=== PATIENT | male | born 1985 | race Caucasian/White ===

== ENCOUNTER 2022-04-23 17:31 | Emergency (ER) | payer SELFPAY ==
[2022-04-23 18:12] VITALS: BMI 28.6
[2022-04-23 18:17] VITALS: BP 141/98; PULSE 60; RESP 18; TEMP 36.5; O2SAT 95
[2022-04-23 18:29] LABS: Add Urine Microscopic? NO; Charge for UA Resulting for Rev
[2022-04-23 18:38] LABS: Bilirubin Urine Neg (Negative); Blood Urine Neg (Negative); Glucose Urine UA Norm (Normal); Ketones Urine Negative (Negative); Leukocyte Esterase Urine Negative (Negative); Nitrate Urine Negative (Negative); Protein Urine Neg (Negative); Urine Appearance Clear (CLEAR); Urine Color Yellow (Yellow); Urobilinogen Urine Neg (Negative); pH Urine 5 (5-7)
[2022-04-23 18:49] LABS: Basophils % 0.4 %; Eosinophils # 0.5 10^3/uL (0.0-0.8); Eosinophils % 4.6 %; Hematocrit 50.3 % (42.0-52.0); Hemoglobin 17.2 g/dL (11.7-16.6); Lymphocytes % 27.7 %; Mean Corpuscular HGB Conc 34.2 g/dL (30.0-36.0); Mean Corpuscular Hemoglobin 29.5 pg (28.0-34.0); Mean Corpuscular Volume 86.3 fl (80-94); Mean Platelet Volume 10.5 fL (7.4-10.4); Monocytes # 1.1 10^3/uL (0.2-0.9); Neutrophils # 6.06 10^3/uL (1.8-7.7); Neutrophils % 56.6 %; Nucleated Red Blood Cells % 0 %; Platelet Count 305 10^3/cmm (130-400); Red Blood Count 5.83 10^6/uL (4.1-5.3); Red Cell Distribution Width 13.2 % (12.1-15.1); White Blood Count 10.7 10^3/uL (4.0-10.0)
[2022-04-23 19:20] LABS: Alanine Aminotransferase 15 U/L (0-41); Albumin Level 4.2 g/dL (3.5-5.2); Alkaline Phosphatase 55 U/L (40-130); Anion Gap 9.8 (5-19); Aspartate Amino Transferase 11 U/L (0-40); Blood Urea Nitrogen 8 mg/dL (6-20); Calcium 9.6 mg/dL (8.5-10.5); Carbon Dioxide 26 mmol/L (22-29); Chloride 100 mmol/L (98-107); Glomerular Filtration Rate 126.9 mL/min (90-130); Glucose 72 mg/dL (65-115); Lipase 260 U/L (13-60); Osmolality Calculated 271 mOsm/kg (285-295); Potassium 3.8 mmol/L (3.5-5.1); Sodium 132 mmol/L (136-145); Total Bilirubin 0.3 mg/dL (0.15-1.2); Total Protein 7.2 g/dL (6.6-8.7)
--- NOTE | 2022-04-23 21:39 | CTR_ITS ---
PROCEDURE INFORMATION: Exam: CT Abdomen And Pelvis With Contrast Exam date and time: 04/23/2022 10:10 PM Age: 36 years old Clinical indication: Abdominal pain; Localized; Right upper quadrant (ruq); Patient HX: C/O ruq/rt flank pain; Additional info: Ruq, right lower chest pain TECHNIQUE: Imaging protocol: Computed tomography of the abdomen and pelvis with contrast. Radiation optimization: All CT scans at this facility use at least one of these dose optimization techniques: automated exposure control; mA and/or kV adjustment per patient size (includes targeted exams where dose is matched to clinical indication); or iterative reconstruction. Contrast material: OMNI 350; Contrast volume: 100 ml; Contrast route: INTRAVENOUS (IV); COMPARISON: No relevant prior studies available. RADIATION DOSE METRICS: Total DLP (mGy-cm): 960.33 FINDINGS: Liver: Normal. No mass. Gallbladder and bile ducts: Normal. No calcified stones. No ductal dilation. Pancreas: Normal. No ductal dilation. Spleen: Normal. No splenomegaly. Adrenal glands: Normal. No mass. Kidneys and ureters: Normal. No hydronephrosis. Stomach and bowel: Unremarkable. No obstruction. No mucosal thickening. Appendix: No evidence of appendicitis. Intraperitoneal space: Unremarkable. No free air. No significant fluid collection. Vasculature: Unremarkable. No abdominal aortic aneurysm. Lymph nodes: Unremarkable. No enlarged lymph nodes. Urinary bladder: Unremarkable as visualized. Reproductive: Unremarkable as visualized. Bones/joints: No acute fracture. Soft tissues: Unremarkable. CT/CT abdomen pelvis w con* [id number] IMPRESSION: No acute findings.
[2022-04-23] MEDS: iohexol 350 mg/mL 100 mL Btl IV (22:14)
--- NOTE | 2022-04-23 22:49 | ED_ITS ---
HPI - Abdominal Pain General: Chief Complaint: Abdominal Pain Stated Complaint: pain in Abs Time Seen by Provider: 04/23/22 21:34 History of Present Illness: 36-year-old male presents with right lateral upper quadrant abdominal pain. He reports that been on and off since yesterday mo rning. It gets worse if he takes a deep breath. Patient reports that is located kind of right under his lower part of his right rib cage. He denies any nausea, vomiting, fever, chills, diarrhea. Associated Symptoms: Denies chills, constipation, diarrhea, fever(s), nausea and vomiting Review of Systems Const: Denies: fever(s) or chills Eyes: Denies: change in vision or blurry vision Card: Denies: chest pain or palpitations Resp: Denies: dyspnea or productive cough GI: Reports: abdominal pain; Denies: nausea, vomiting, diarrhea or constipation : Denies: flank pain or difficulty urinating Musc: Denies: neck pain or back pain Skin/Breast: Reports: changes in skin color; Denies: rash Neuro: Denies: headache(s) or dizziness Psych: Denies: anxiety or depression Physical Exam Const: COMMON NORMALS: no acute distress, patient oriented x3, no limitations and alert Resp: COMMON NORMALS: normal respiratory effort, No use of accessory muscles and clear to auscultation bilaterally AUSCULTATION: clear to auscultation bilaterally Cardio: COMMON NORMALS: regular rate and regular rhythm RATE: regular rate RHYTHM: regular rhythm GI: COMMON NORMALS: Soft to palpation PALPATION: Yes Soft to palpation and Yes Tenderness to palpation present (GI) (right lateral upper quad, minimal ) Extremity: COMMON NORMALS: full ROM and capillary refill normal Neuro: COMMON NORMALS: patient oriented x3, moves all extremities, no focal motor deficits and no sensory deficits noted SENSORIUM/ORIENTATION: Yes alert Psych: COMMON NORMALS: mental status grossly normal, Normal thought process present and cooperative THOUGHT PROCESS: Normal thought process present Skin: COMMON NORMALS: no rashes or lesions noted and turgor normal GENERAL SKIN EXAM: no rashes or lesions noted and turgor normal Course Vital Signs: Vital signs: Vital Signs Temperature 97.7 F 04/23/22 18:17 Pulse Rate 60 04/23/22 18:17 Respiratory Rate 18 04/23/22 18:17 Blood Pressure 141/98 04/23/22 18:17 Pulse Oximetry 95 04/23/22 18:17 Oxygen Delivery Me thod 04/23/22 18:17 MDM - Abdominal Pain Medical Decision Making Patient with very minimal elevation of his white count. Patient with slight decrease in his sodium and a slight elevation of his hemoglobin which is likely due to maybe some mild dehydration. CT abdomen and pelvis shows no acute findings. Patient had a lot of difficulty even point out where the pain was. Suspect this is either musculoskeletal in nature versus other unknown etiology. He does have a slight elevation of his lipase but no epigastric or right upper quadrant pain but more of a lateral pain and a negative Walters sign. Recommend if his symptoms worsen he should follow-up with a primary care provider for further evaluation and possible ultrasound. Patient stable and discharged home Lab Data : 04/23/22 18:39 04/23/22 18:39 Labs/Radiology: Radiology Impressions Abdomen/Pelvis CT 04/23/22 21:39 IMPRESSION: No acute findings. Laboratory Results WBC 10.7 10^3/uL (4.0-10.0) H 04/23/22 18:39 RBC 5.83 10^6/uL (4.1-5.3) H 04/23/22 18:39 Hgb 17.2 g/dL (11.7-16.6) H 04/23/22 18:39 Hct 50.3 % (42.0-52.0) 04/23/22 18:39 MCV 86.3 fl (80-94) 04/23/22 18:39 MCH 29.5 pg (28.0-34.0) 04/23/22 18:39 MCHC 34.2 g/dL (30.0-36.0) 04/23/22 18:39 RDW 13.2 % (12.1-15.1) 04/23/22 18:39 Plt Count 305 10^3/cmm (130-400) 04/23/22 18:39 MPV 10.5 fL (7.4-10.4) H 04/23/22 18:39 Neut % (Auto) 56.6 % 04/23/22 18:39 Lymph % (Auto) 27.7 % 04/23/22 18:39 [place] % (Auto) 10.0 % 04/23/22 18:39 Eos % (Auto) 4.6 % 04/23/22 18:39 Baso % (Auto) 0.4 % 04/23/22 18:39 Neut # (Auto) 6.06 10^3/uL (1.8-7.7) 04/23/22 18:39 Lymph # (Auto) 3.0 10^3/uL (0.8-4.8) 04/23/22 18:39 [place] # (Auto) 1.1 10^3/uL (0.2-0.9) H 04/23/22 18:39 Eos # (Auto) 0.5 10^3/uL (0.0-0.8) 04/23/22 18:39 Baso # (Auto) 0.0 10^3/uL (0.0-0.1) 04/23/22 18:39 Nucleated RBC % (auto) 0 % 04/23/22 18:39 Nucleated RBCs # 0.0 /100WBC 04/23/22 18:39 Sodium 132 mmol/L (136-145) L 04/23/22 18:39 Potassium 3.8 mmol/L (3.5-5.1) 04/23/22 18:39 Chloride 100 mmol/L (98-107) 04/23/22 18:39 Carbon Dioxide 26 mmol/L (22-29) 04/23/22 18:39 Anion Gap 9.8 (5-19) 04/23/22 18:39 BUN 8 mg/dL (6-20) 04/23/22 18:39 Creatinine 0.7 mg/dL (0.7-1.2) 04/23/22 18:39 GFR Calculation 126.9 mL/min (90-130) 04/23/22 18:39 Glucose 72 mg/dL (65-115) 04/23/22 18:39 Calculated Osmolality 271 mOsm/kg (285-295) L 04/23/22 18:39 Calcium 9.6 mg/dL (8.5-10.5) 04/23/22 18:39 Total Bilirubin 0.3 mg/dL (0.15-1.2) 04/23/22 18:39 AST 11 U/L (0-40) 04/23/22 18:39 ALT 15 U/L (0-41) 04/23/22 18:39 Alkaline Phosphatase 55 U/L (40-130) 04/23/22 18:39 Total Protein 7.2 g/dL (6.6-8.7) 04/23/22 18:39 Albumin 4.2 g/dL (3.5-5.2) 04/23/22 18:39 Globulin 3.0 g/dL (1.3-4.6) 04/23/22 18:39 Lipase 260 U/L (13-60) H 04/23/22 18:39 Urine Color Yellow (Yellow) 04/23/22 18:25 Urine Appearance Clear (CLEAR) 04/23/22 18:25 Urine pH 5 (5-7) 04/23/22 18:25 Ur Specific [place] 1.010 (1.005-1.030) 04/23/22 18:25 Urine Protein Neg (Negative) 04/23/22 18:25 Urine Glucose (UA) Norm (Normal) 04/23/22 18:25 Urine Ketones Negative (Negative) 04/23/22 18:25 Urine Blood Neg (Negative) 04/23/22 18:25 Urine Nitrate Negative (Negative) 04/23/22 18:25 Urine Bilirubin Neg (Negative) 04/23/22 18:25 Urine Urobilinogen Neg mg/dL (Negative) 04/23/22 18:25 Ur Leukocyte Esterase Negative (Negative) 04/23/22 18:25 Discharge Plan Discharge Condition: Stable Prescriptions: No Action No Known Home Medications Coding Level of Care Code ED Superintendent Refuse Disposal for Chg Fwd Exam Comprehensive
== END 2022-04-23 23:32 | disposition home or self-care (01) ==
PROVIDERS: Emergency Medicine; Emergency Provider Student in an Organized Health Care Education/Training Program
DX: R10.11 Right upper quadrant pain (principal)
CPT/HCPCS: 36415; 74177; 80053; 81003; 83690; 85025; 99285; Q9967

== ENCOUNTER → 2022-12-11 10:21 | Outpatient (BNVA) | payer MEDICAID, SELFPAY | PROVIDERS: PCP Registered Nurse; Visit Provider Registered Nurse | DX: Z00.00 Encounter for general adult medical examination without abnormal findings (principal) | CPT/HCPCS: 80053; 80061; 83036; 85025 ==